=== PATIENT | male | born 1960 | race Caucasian/White ===

== ENCOUNTER → 2016-10-16 | Day surgery (SDC) | payer OTHER ==
[~2016-10-16] MED LIST: ALBUTEROL17 GM INH; DESYREL50 MG PO; ECOTRIN325 MG PO; FLEXERIL PO; HYDROCODON-ACE1 EAC9 PO; KETOPROFEN PO; OMEPRAZOLE40 M1 PO; SYMBICORT80 INH; ZITHROMAX PO
--- NOTE | ~2016-10-16 | OR ---
Unit #: [id number] #: [id number] Patient: SPENCER SCHULER [id number] [address] [place], [place] [address] [id number] O MR#: [id number] NAME: SPENCER SCHULER. ROOM: Date of Procedure: 10/16/2016 Admission Date: 10/16/2016 Surgeon: Julito Riley M.D. : 1960 Attending Physician: Julito Riley M.D. Primary Care Physician: Drake Figueroa A.P.R.N. OPERATIVE REPORT PROCEDURE PERFORMED Colonoscopy with snare polypectomy. INDICATION A 56-year-old with average risk for colorectal cancer. MEDICATIONS Monitored anesthesia. POSTOPERATIVE FINDINGS 1. Two polyps, one in sigmoid colon, 1 cm, another one in rectum, 5 mm, both were snared and sent for histopathology. 2. Rest of the exam was normal to cecum. PLAN Repeat colonoscopy in 3 years. DESCRIPTION OF PROCEDURE The patient was explained of the procedure, risks, and benefits along with the risks and benefits of anesthesia. He was brought to the endoscopy room. Propofol anesthesia was given. Rectal exam was done, which was normal. Colonoscope was lubricated, passed up the rectum, advanced under direct vision all the way to the cecum. Cecum was identified by ileocecal valve and appendiceal orifice. I then started to pull the scope out carefully looking. Two polyps were seen as described. There were both removed using hot snare polypectomy. He tolerated it well. No major complications were seen. Dictated by... Kofi Del Rio/oliva TD: 10/17/2016 00:22 JOB #: [id number] Unit #: [id number] #: [id number] Patient: SPENCER SCHULER OPERATIVE REPORT Page 1 of 1 X Julito Riley MD X PROCEDURE OPERATIVE NOTE
== END | disposition home or self-care (01) ==
LOC: COPS 09:44
DX: Z12.11 Encounter for screening for malignant neoplasm of colon (principal); D12.5 Benign neoplasm of sigmoid colon; D12.8 Benign neoplasm of rectum; J44.9 Chronic obstructive pulmonary disease, unspecified; F17.200 Nicotine dependence, unspecified, uncomplicated; M19.90 Unspecified osteoarthritis, unspecified site
CPT/HCPCS: 88305